=== PATIENT | male | born 1990 | race African-American/Black ===

== ENCOUNTER 2019-01-11 05:32 | Emergency (ER) | payer OTHER ==
[2019-01-11] MEDS ORDERED: TETANUS & DIPHTHERIA TOX,ADULT 0.5 ML VIAL ONE ×2 (05:49→05:59)
[2019-01-11] MEDS ORDERED: MUPIROCIN 2% OINT 22GM TUBE TOP ONE ×2 (05:50→05:59)
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
[2019-01-11] MEDS ORDERED: HYDROCODONE/APAP 5/325 MG TAB ONE (07:21)
[2019-01-11] MEDS ORDERED: KETOROLAC 30 MG/ML INJ ONE (07:21)
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
[2019-01-11 08:02] VITALS: TEMP 98
[2019-01-11 08:05] VITALS: BP 110/84; O2SAT 99
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
== END 2019-01-11 07:51 | disposition home or self-care (01) ==
LOC: ER 05:32
DX: S40.812A Abrasion of left upper arm, initial encounter (principal); J45.909 Unspecified asthma, uncomplicated; V49.49XA Driver injured in collision with other motor vehicles in traffic accident, initial encounter; Z23 Encounter for immunization
CPT/HCPCS: 70450; 72125; 90471; 90714; 96372; 99285